=== PATIENT | female | born 1975 | race African-American/Black ===

== ENCOUNTER 2018-08-23 01:19 | Emergency (ER) | payer MEDICAID, OTHER ==
[~2018-08-23] VITALS: Ht 170.2 cm; Wt 81.6 kg
[~2018-08-23 01:19] MED LIST: AMLODIPINE; BENA20TA14; GABA1POW27; HCTZ; NAPROXEN
[2018-08-23] MEDS ORDERED: cloNIDine HCL 0.1 MG TAB PO ONE (01:45)
[2018-08-23 02:03] LABS: Basophils # (auto) 0 uL; Basophils % (auto) 0.2 % (0.0-2.0); Eosinophils # (auto) 0.1 uL; Eosinophils % (auto) 1.3 % (0.0-7.0); Hemoglobin 12.7 g/dL (12.2-16.2); Lymphocytes # (auto) 2.5 uL; Lymphocytes % (auto) 49.2 % (10.0-50.0); Mean Corpuscular Hgb Conc. 33.3 g/dL (32.0-36.0); Mean Corpuscular Volume 95.9 fL (80.0-100.0); Monocytes # (auto) 0.4 uL; Monocytes % (auto) 7.2 % (0.0-12.0); Neutrophils # (auto) 2.1 uL; Neutrophils % (auto) 42.1 % (37.0-80.0); Nucleated Red Blood Cells % 0.1 %; Platelet Count (auto) 242 10^3/uL (140-450); Red Blood Cells 3.96 10^6/uL (4.0-5.20); Red Cell Distribution Width 14.7 % (11.8-14.3); White Blood Cell 5.1 10^3/uL (4.4-10.8)
[2018-08-23 02:21] LABS: Alanine Aminotransferase 30 U/L (13-56); Albumin 3.3 g/dL (3.4-5.0); Anion Gap 9 (5-15); Blood Urea Nitrogen 12 mg/dL (7-18); Calcium 7.8 mg/dL (8.5-10.1); Carbon Dioxide 26 mmol/L (21-32); Chloride 103 mmol/L (98-107); GFR African American 101 mL/min; GFR Non-African American 83 mL/min; Glucose 109 mg/dL (74-106); Potassium 3.6 mmol/L (3.5-5.1); Sodium 138 mmol/L (136-145)
[2018-08-23 02:25] LABS: INR 0.94 (0.9-1.15); Partial Thromboplastin Time 27.5 sec (23.78-33.04); Prothrombin Time 10.1 sec (9.27-12.13)
[2018-08-23 02:27] LABS: Alkaline Phosphatase 51 U/L (45-117); Aspartate Aminotransferase 27 U/L (15-37); Bilirubin, Total 0.5 mg/dL (0.2-1.0); Total Protein 7.7 g/dL (6.4-8.2)
[2018-08-23 03:58] VITALS: BP 144/102
== END 2018-08-23 03:58 | disposition left against medical advice (07) ==
LOC: ER 01:22
DX: R51 Headache (principal); R42 Dizziness and giddiness; Z53.21 Procedure and treatment not carried out due to patient leaving prior to being seen by health care provider
CPT/HCPCS: 36415; 70450; 71046; 80053; 83735; 84484; 85025; 85610; 85730; 93005

== ENCOUNTER 2022-01-17 07:18 | Emergency (ER) | payer OTHER, MEDICAID ==
[~2022-01-17] VITALS: Ht 170.2 cm; Wt 81.6 kg
[~2022-01-17 07:18] MED LIST changes: -GABA1POW27; +GABAPOW36
[2022-01-17] MEDS ORDERED: cloNIDine HCL 0.1 MG TAB ONE (07:34)
[2022-01-17] MEDS ORDERED: cloNIDine HCL 0.1 MG TAB PO ONE (08:15)
[2022-01-17 08:38] LABS: Basophils # (auto) 0 10 ^3/uL (0-0.2); Basophils % (auto) 0.9 % (0.0-2.0); Eosinophils # (auto) 0 10 ^3/uL (0-0.8); Eosinophils % (auto) 0.8 % (0.0-7.0); Hematocrit 38.1 % (36.0-46.0); Hemoglobin 12.4 g/dL (12.2-16.2); Lymphocytes # (auto) 1.7 10 ^3/uL (0.4-5.4); Lymphocytes % (auto) 39.7 % (10.0-50.0); Mean Corpuscular Hemoglobin 30.1 pg (28.0-32.0); Mean Corpuscular Hgb Conc. 32.6 g/dL (32.0-36.0); Mean Corpuscular Volume 92.6 fL (80.0-100.0); Monocytes # (auto) 0.4 10 ^3/uL (0-1.3); Monocytes % (auto) 9.3 % (0.0-12.0); Neutrophils # (auto) 2.1 10 ^3/uL (1.6-8.6); Neutrophils % (auto) 49.3 % (37.0-80.0); Nucleated Red Blood Cells % 0.1 %; Red Blood Cells 4.11 10^6/uL (4.0-5.20); White Blood Cell 4.3 10^3/uL (4.4-10.8)
[2022-01-17 08:56] LABS: Potassium 3.7 mmol/L (3.5-5.1)
[2022-01-17 09:03] LABS: Albumin 3.6 g/dL (3.4-5.0); BUN/Creatinine Ratio 12.9; Calcium 8.6 mg/dL (8.5-10.1); Total Protein 8.2 g/dL (6.4-8.2)
[2022-01-17] MEDS ORDERED: IBU600T PO (10:05)
[2022-01-17 13:20] VITALS: BP 145/98
[2022-01-17 13:21] LABS: Urine Bacteria NONE SEEN /hpf (None Seen); Urine Blood Negative /uL (Negative); Urine Mucus FEW (None Seen); Urine Specific Gravity 1.036 (1.001-1.035); Urine WBC 2 /hpf (0 - 5)
== END 2022-01-17 13:23 | disposition home or self-care (01) ==
LOC: ER 07:18
DX: S43.422A Sprain of left rotator cuff capsule, initial encounter (principal); I16.0 Hypertensive urgency; Z98.51 Tubal ligation status; X58.XXXA Exposure to other specified factors, initial encounter; Y93.89 Activity, other specified; Y92.89 Other specified places as the place of occurrence of the external cause; Y99.8 Other external cause status
CPT/HCPCS: 36415; 70450; 73030; 80053; 81001; 84484; 85025; 93005

== ENCOUNTER 2024-12-13 03:12 | Inpatient (IN) | payer OTHER, MEDICAID ==
[~2024-12-13] VITALS: Ht 170.2 cm; Wt 86.2 kg
[~2024-12-13 03:12] MED LIST changes: +BENA-36; -BENA20TA14; +IBU600T PO
--- NOTE | 2024-12-13 03:54 | ED.PDOC ---
HPI Allergic reaction HPI Comments 49 YEAR OLD FEMALE PRESENTS TO ER WITH COMPLAINTS OF ALLERGIC REACTION X 1 DAY. PATIENT STATES THAT SHE RECENTLY STARTED TAKING LISINOPRIL AND METRONIDAZOLE AND WOKE UP THIS MORNING AT 2 A.M. WITH LOWER LIP SWELLING AND "THROAT TIGHTNESS". STATES HER MOTHER HAD THE SAME REACTION WHEN SHE TOOK LISINOPRIL. PATIENT DENIES ANY PAIN AND PRESENTS TO ER AMBULATORY ON ARRIVAL, ALERT AND ORIENTED X4, SPEAKING IN CLEAR AND COMPLETE SENTENCES, IN NO DISTRESS, WITH VITALS STABLE AND MODERATE ANGIOEDEMA TO LOWER LIP APPRECIATED. DENIES CHEST PAIN, N/V, TONGUE SWELLING, SHORTNESS OF BREATH OR ANY FURTHER SYMPTOMS/COMPLAINTS Chief Complaint: Allergic Reaction Time Seen by MD: 03:27 Primary Care Provider: Dr. Mao Reviewed Notes: Nurses Notes, Medications, Allergies Allergies: Coded Allergies: BOUBACAR Inhibitors (Verified Allergy, Severe, 12/13/24) Metronidazole (Verified Allergy, Severe, 12/13/24) Home Meds Active Scripts Amlodipine Besylate (Amlodipine Besylate) 10 Mg Tab, 10 MG PO DAILY for 20 Days, #20 TAB 1 Refill Prov:RAGHAV STAHL 12/14/24 Discontinued Reported Medications Hydrocodone-Acetaminophen (Hydrocodone Bitartrate/AC 10-325 mg) 1 Tab Tab, 1 TAB PO QIDPRN, TAB 12/13/24 [Naproxen] No Conflict Check 02/26/11 [Hctz] No Conflict Check 02/26/11 Gabapentin (Gabapentin) Pow 02/26/11 [Amlodipine] No Conflict Check 02/26/11 Benazepril Hcl (Benazepril Hcl) 20 Mg Tab 10/13/10 Discontinued Scripts Ibuprofen Micronized (MOTRIN TABLET) 600 Mg Tb, 600 MG PO TID PRN for 5 Days, #15 TAB *Black box warning-NSAIDS can increase risk of [place] & hypertension, GI irritation, ulceration, bleed, perferation. Do not use post cardiac surgery. Use short duration/lowest effective dose. Prov:LUKE LUIS MD 01/17/22 Epinephrine (Epinephrine) 0.3 Mg/0.3 Ml Inj, 0.3 MG IJ ONCE, #1 INJ 0 Refills Prov:TAYLER GAMEZ 12/13/24 Prednisone (Prednisone) 20 Mg Tab, 20 MG PO BID for 5 Days, #10 TAB 0 Refills Prov:TAYLER GAMEZ 12/13/24 Diphenhydramine Hcl (Benadryl Allergy) 25 Mg Cap, 2 CAP PO Q6HPRN, #30 CAP 0 Refills Prov:TAYLER GAMEZ 12/13/24 Information Source: Patient Mode of Arrival: Ambulatory Past Medical History PAST MEDICAL HISTORY: HTN Past Medical History (Other): DIVERTICULITIS Surgical History: BTL RV TECHNICIAN History: No Pertinent RV TECHNICIAN History Family History Family History: No family hx of HTN Social History Smoker: Non-Smoker Alcohol: Occasionally Drugs: Denies Drug Use Lives In: Home Constitutional: denies: chills, diaphoresis, fatigue, fever, malaise, sweats, weakness, others EENTM: reports: others ( STATED IN HPI) Respiratory: denies: cough, hemoptysis, orthopnea, SOB at rest, shortness of breath, SOB with excertion, stridor, wheezing, others Cardiovascular: denies: chest pain, dizzy spells, diaphoresis, Dyspnea on exer tion, edema, irregular heart beat, left arm pain, lightheadedness, palpitations, PND, syncope, others Gastrointestinal: denies: abdomen distended, abdominal pain, blood streaked bowels, constipated, diarrhea, dysphagia, difficulty swallowing, hematemesis, melena, nausea, poor appetite, poor fluid intake, rectal bleeding, rectal pain, vomiting, others Genitourinary: denies: abnormal vagina bleeding, burning, dyspareunia, dysuria, flank pain, frequency, hematuria, incontinence, pain, , vagina discharge, urgency, others Neurological: denies: dizziness, fainting, headache, left sided numbness, left sided weakness, numbness, paresthesia, pre-existing deficit, right sided numbness, right sided weakness, seizure, speech problems, tingling, tremors, weakness, others Musculoskeletal: denies: back pain, gout, joint pain, joint swelling, muscle pain, muscle stiffness, neck pain, others Integumetry: reports: others ( STATED IN HPI) Allergic/Immunocompromised: reports: others ( STATED IN HPI) Hematologic/Lymphatic: denies: anemia, blood clots, easy bleeding, easy bruis ing, swollen glands, others Endocrine: denies: excessive hunger, excessive sweating, excessive thirst, exc essive urination, flushing, intolerance to cold, intolerance to heat, unexplained weight gain, unexplained weight loss, others Psychiatric: denies: anxiety, bipolar disorder, depression, hopeless, panic disorder, schizophrenia, sleepless, suicidal, others Physical Exam General Appearance: No Apparent Distress, Normal HEENT: PERRL/EOMI, Pharynx Normal, TMs Normal, Other (MODERATE ANGIOEDEMA TO LOWER LIP NOTED. REMAINDER MOUTH/THROAT EXAMINATION-UNREMARKABLE) Neck: Full Range of Motion, Non-Tender, Normal Respiratory: Chest Non-Tender, Lungs Clear, No Accessory Muscle Use, No Respiratory Distress, Normal Breath Sounds Cardiovascular: No Murmur, No Gallop, Regular Rate/Rhythm Breast Exam: Deferred Gastrointestinal: NOT DONE Genitalia: Deferred Pelvic: Deferred Rectal: Deferred Extremities: Normal capillary refill, Normal range of motion Neurologic: Alert, rubber chemist II-XII nml as Tested, No Motor Deficits, Normal Affect, Normal Mood, No Sensory Deficits Cerebellar Function: Normal Reflexes: Normal Skin: Dry, Normal Color, Warm Peripheral Pulses: 2+ Radial (R), 2+ Radial (L), 2+ Brachial (R), 2+ Brachial (L) Lymphatic: No Adenopathy Was a procedure done? Was a procedure done?: No Sedation Sedation?: No Differential diagnosis (all) Differential Diagnosis: Anaphylaxis, Contact Dermatitis, Hypotension, Respiratory Failure X-Ray, Labs, Meds, VS Vital Signs Date Time Temp Pulse Resp B/P (MAP) Pulse Ox O2 Delivery O2 Flow Rate FiO2 12/13/24 05:31 109 12/13/24 04:47 154/101 (118) 12/13/24 04:41 82 18 100 Room Air* 0 21 12/13/24 04:41 98.1 73 18 169/68 (101) 100 98.1 12/13/24 03:30 18 100 Room Air* 0 21 12/13/24 03:30 99.1 92 18 128/73 (91) 100 99.1 Lab Test 12/13/24 05:11 Range/Units White Blood Count 10.1 4.4-10.8 10^3/uL Red Blood Count 4.19 4.0-5.20 10^6/uL Hemoglobin 12.6 12.2-16.2 g/dL Hematocrit 37.6 36.0-46.0 % Mean Corpuscular Volume 89.7 80.0-100.0 fL Mean Corpuscular Hemoglobin 30.1 28.0-32.0 pg Mean Corpuscular Hemoglobin Concent 33.6 32.0-36.0 g/dL Red Cell Distribution Width 17.0 H 11.8-14.3 % Platelet Count 287 140-450 10^3/uL Mean Platelet Volume 7.2 6.9-10.8 fL Neutrophils (%) (Auto) 68.6 37.0-80.0 % Lymphocytes (%) (Auto) 22.5 10.0-50.0 % Monocytes (%) (Auto) 8.0 0.0-12.0 % Eosinophils (%) (Auto) 0.3 0.0-7.0 % Basophils (%) (Auto) 0.6 0.0-2.0 % Neutrophils # (Auto) 6.9 1.6-8.6 10 ^3/uL Lymphocytes # (Auto) 2.3 0.4-5.4 10 ^3/uL Monocytes # (Auto) 0.8 0-1.3 10 ^3/uL Eosinophils # (Auto) 0 0-0.8 10 ^3/uL Basophils # (Auto) 0.1 0-0.2 10 ^3/uL Nucleated Red Blood Cells 0.0 % Sodium Level 136 136-145 mmol/L Potassium Level 3.4 L 3.5-5.1 mmol/L Chloride Level 102 98-107 mmol/L Carbon Dioxide Level 24 20-31 mmol/L Anion Gap 10 5-15 Blood Urea Nitrogen 11 9-23 mg/dL Creatinine 0.92 0.550-1.02 mg/dL Glomerular Filtration Rate Calc 76 >90 mL/min BUN/Creatinine Ratio 12.0 10.0-20.0 Serum Glucose 115 H 74-106 mg/dL Hemoglobin A1c 5.8 H <5.7 % A1C Calcium Level 9.4 8.7-10.4 mg/dL Magnesium Level 1.9 1.6-2.6 mg/dL Troponin I High Sensitivity < 3 L </=34 ng/L Triglycerides Level 60 < 150 mg/dL Cholesterol Level 195 < 200 mg/dL LDL Cholesterol 131 H < 100 mg/dL HDL Cholesterol 47 40-59 mg/dL CBC REVIEWED WITHOUT ANY SIGNIFICANT ABNORMALITIES BMP- REVIEWED WITHOUT ANY SIGNIFICANT ABNORMALITIES TROPONIN REVIEWED - NORMAL HEP-LOCK IV ORDERED NS 2 L IV ORDERED SOLU-MEDROL 125 MG IV ORDERED BENADRYL 50 MG IV ORDERED EPINEPHRINE 0.3 MG SUBQ ORDERED EPINEPHRINE 0.3 IM ORDERED EKG ORDERED PATIENT REPORTED IMPROVEMENT IN THROAT TIGHTNESS BUT HAS NO IMPROVEMENT OF ANGIOEDEMA TO LOWER LIP PATIENT RESTING COMFORTABLY AT BEDSIDE, DENIES ANY SHORTNESS OF BREATH/CHEST PAIN/PALPITATIONS AND IN NO DISTRESS PATIENT ADMITTED TO HOSPITALIST FOR ANGIOEDEMA AND NEED FOR FURTHER EVALUATION Time of 1ST Reevaluation: 03:54 Reevaluation 1ST: N/A Time of 2ND Reevaluation: 04:48 Reevaluation 2ND: Unchanged (PATIENT HAS NO IMPROVEMENT OF ANGIOEDEMA OF LOWER LIP. BUT STATES HER THROAT TIGHTNESS HAS FULLY SUBSIDED) Patient Education/Counseling: Diagnosis, Treatment, Prognosis, Need For Follow Up Family Education/Counseling: No Family Present Departure 1 Departure Time of Disposition: 04:50 Impression: Primary Impression: Angioedema Qualified Codes: T78.3XXA - Angioneurotic edema, initial encounter Additional Impression: Allergic reaction Qualified Codes: T78.40XA - Allergy, unspecified, initial encounter Disposition: ADMITTED INPATIENT Condition: Serious e-Prescriptions Amlodipine Besylate (Amlodipine Besylate) 10 Mg Tab 10 MG PO DAILY for 20 Days, #20 TAB 1 Refill Prov: REGINASKYLARCHERYCARLOS RESDICHARITO 12/14/24 Critical Care Note Critical Care Time?: No Stability Stability form required: No Heart Score Heart Score: Heart Score Response (Comments) Value History N/A 0 EKG N/A 0 Age N/A 0 Risk Factors N/A 0 Troponin N/A 0 Total 0 TAYLER GAMEZ Dec 13, 2024 03:54
[2024-12-13] MEDS: diphenhdrAMINE HCL 50 MG/1 ML VL IV ONE (03:58)
[2024-12-13] MEDS: SODIUM CHLORIDE 0.9% 1,000 ML IV ONE ×2 (03:58→05:39)
[2024-12-13] MEDS: methylPREDNISolone SOD SUCC 125 MG/2 ML VL IV ONE (03:58)
[2024-12-13] MEDS ORDERED: PRED20TA2 PO (04:04)
[2024-12-13] MEDS ORDERED: DIPH25CA66 PO (04:04)
[2024-12-13] MEDS ORDERED: EPIN0.3I24 IJ (04:04)
[2024-12-13] MEDS: EPINEPHrine HCL 1 MG/1 ML AMP SC ONE (04:25)
[2024-12-13 04:41] VITALS: PULSE 82; RESP 18; O2SAT 100
[2024-12-13] MEDS: EPINEPHrine HCL 1 MG/1 ML AMP IM ONE (05:08)
[2024-12-13 05:29] LABS: Basophils # (auto) 0.1 10 ^3/uL (0-0.2); Basophils % (auto) 0.6 % (0.0-2.0); Eosinophils # (auto) 0 10 ^3/uL (0-0.8); Eosinophils % (auto) 0.3 % (0.0-7.0); Hematocrit 37.6 % (36.0-46.0); Hemoglobin 12.6 g/dL (12.2-16.2); Lymphocytes # (auto) 2.3 10 ^3/uL (0.4-5.4); Lymphocytes % (auto) 22.5 % (10.0-50.0); Mean Corpuscular Hemoglobin 30.1 pg (28.0-32.0); Mean Corpuscular Hgb Conc. 33.6 g/dL (32.0-36.0); Mean Corpuscular Volume 89.7 fL (80.0-100.0); Monocytes # (auto) 0.8 10 ^3/uL (0-1.3); Neutrophils # (auto) 6.9 10 ^3/uL (1.6-8.6); Neutrophils % (auto) 68.6 % (37.0-80.0); Platelet Count (auto) 287 10^3/uL (140-450); Red Blood Cells 4.19 10^6/uL (4.0-5.20); White Blood Cell 10.1 10^3/uL (4.4-10.8)
[2024-12-13 05:38] LABS: Chloride 102 mmol/L (98-107)
[2024-12-13 05:39] LABS: Anion Gap 10 (5-15); Carbon Dioxide 24 mmol/L (20-31)
[2024-12-13 05:40] LABS: Calcium 9.4 mg/dL (8.7-10.4)
[2024-12-13 05:42] LABS: Potassium 3.4 mmol/L (3.5-5.1); Sodium 136 mmol/L (136-145)
[2024-12-13 05:44] LABS: Blood Urea Nitrogen 11 mg/dL (9-23)
[2024-12-13 05:45] LABS: Glucose 115 mg/dL (74-106)
[2024-12-13] MEDS: SODIUM CHLORIDE 0.9% 1,000 ML IV SCH (05:45)
[2024-12-13] MEDS ORDERED: ACETAMINOPHEN 325 MG TAB PO PRN (05:45)
--- NOTE | 2024-12-13 06:09 | DVHHPRES ---
History of Present Illness Resident Creating Document: BYRON GLASER History of Present Illness This is a 49-year-old female with past medical history of hypertension, dyslipidemia, diverticulitis, chronic back pain, degenerative disk disease, presented to the ED due to allergic reaction. Patient states that she woke up 2:00 a.m. this morning for work and she noticed that her lower lip was heavy and she observed significantly swelling at the mirror. Patient denied swelling in the eyes, other parts of the face, throat tightness, SOB, chest pain or any other additional symptoms. The patient states that the only medications that she is taking at home are lisinopril/hydrochlorothiazide, metronidazole and hydrocodone 10/325. Patient states that has been taking lisinopril for approximately 2-3months and the metronidazole for the past 3 days. The patient reports that she started taking metronidazole because she was diagnosed with diverticulitis three days ago. Patient also reports that her mother similar symptoms when she was taking lisinopril as well. Upon admission, the patient received two shots of intramuscular epinephrine and swelling started to slightly improved. The patient started developing PVCs in a bigeminy pattern that resolves and goes back to bigeminy. EKG showed sinus tachycardia with bigeminy. We will order a CT scan of the abdomen and pelvis without contrast since the patient still having left lower quadrant abdominal tenderness. We will admit the patient for further assessment and management of the angioedema and possible diverticulitis. Past medical history: Primary hypertension, diverticulitis, chronic back pain, dyslipidemia Home medications: Lisinopril/hydrochlorothiazide, metronidazole, hydrocodone 10/325 mg Surgical history: Fallopian tube ligation in 1996 and right foot surgery. Social history: Denies alcohol, drug consumption or smoking. Cardiovascular: HTN, hyperipidemia GI: Diverticulosis Musculoskeletal: Chronic low back pain Past Surgical History: Tubal Ligation Family History: None Smoke: No ALCOHOL: none Drugs: None Lives: with Family Domestic Violence: Neg Review of Systems Constitutional: No: Fever, Chills, Sweats, Weakness, Malaise, Other Eyes: No: Pain, Vision change, Conjunctivae inflammation, Eyelid inflammation, Other, Redness ENT: Mouth swelling; No: Ear pain, Ear discharge, Nose pain, Nose discharge, Nose congestion, Mouth pain, Throat pain, Throat swelling, Other Respiratory: No: Cough, Dry, Shortness of breath, SOB with excertion, Wheezing, Hemoptysis, Pleuritic Pain, Sputum, Wheezing, Other Cardiovascular: No: Chest Pain, Palpitations, Orthopnea, Paroxysmal Noc. Dyspnea, Edema, Lt Headedness, Other Gastrointestinal: Abdominal Pain; No: Nausea, Vomiting, Diarrhea, Constipation, Melena, Hematochezia, Other Genitourinary: No Dysuria, No Frequency, No Incontinence, No Hematuria, No Retention, No Other Musculoskeletal: No: other, neck pain, shoulder pain, arm pain, back pain, hand pain, leg pain, foot pain Skin: No: Rash, Lesions, Jaundice, Bruising, Other Neurological: No: Weakness, Numbness, Incoordination, Change in speech, Confusion, Seizures, Other Allergies: Coded Allergies: BOUBACAR Inhibitors (Verified Allergy, Severe, 12/13/24) Metronidazole (Verified Allergy, Severe, 12/13/24) Medications Current Medications Medications Dose Ordered Sig/Karthikeyan Route Start Time Stop Time Status Last Admin Dose Admin Sodium Chloride 1,000 ml @ 60 mls/hr [id number] IV 12/13/24 05:45 Acetaminophen 650 mg Q6HP PRN PO 12/13/24 05:45 Exam Vital Signs Vital Signs Date Time Temp Pulse Resp B/P (MAP) Pulse Ox O2 Delivery O2 Flow Rate FiO2 12/13/24 05:31 109 12/13/24 04:47 154/101 (118) 12/13/24 04:41 18 100 Room Air* 0 21 12/13/24 04:41 98.1 98.1 General Appearance: Alert, Oriented X3, Cooperative, No acute distress HEENT: Atraumatic, PERRLA, EOMI, Mucous membr. moist/pink, Other (There is significant swelling of the lower lip) Respiratory: Clear to auscultation, Normal air movement Cardiovascular: Regular rate, Normal S1, Normal S2, Other (There is recurrent PVCs forming bigeminy pattern that comes and goes to normal sinus rhythm) Abdominal: Normal bowel sounds, Soft, Other (There is left lower quadrant abdominal tenderness to palpation) Extremities: No clubbing, No cyanosis, No edema, Normal pulses, No tenderness/swelling Skin: No rashes, No breakdown, No significant lesion Neuro: Normal gait, Normal speech, Strength at 5/5 X4 ext, Normal tone, Sensation intact, Cranial nerves 3-12 NL, Reflexes 2+ Psych/Mental Status: Mental status NL, Mood NL Labs/Xrays Labs Test 12/13/24 05:11 Range/Units White Blood Count 10.1 4.4-10.8 10^3/uL Red Blood Count 4.19 4.0-5.20 10^6/uL Hemoglobin 12.6 12.2-16.2 g/dL Hematocrit 37.6 36.0-46.0 % Mean Corpuscular Volume 89.7 80.0-100.0 fL Mean Corpuscular Hemoglobin 30.1 28.0-32.0 pg Mean Corpuscular Hemoglobin Concent 33.6 32.0-36.0 g/dL Red Cell Distribution Width 17.0 H 11.8-14.3 % Platelet Count 287 140-450 10^3/uL Mean Platelet Volume 7.2 6.9-10.8 fL Neutrophils (%) (Auto) 68.6 37.0-80.0 % Lymphocytes (%) (Auto) 22.5 10.0-50.0 % Monocytes (%) (Auto) 8.0 0.0-12.0 % Eosinophils (%) (Auto) 0.3 0.0-7.0 % Basophils (%) (Auto) 0.6 0.0-2.0 % Neutrophils # (Auto) 6.9 1.6-8.6 10 ^3/uL Lymphocytes # (Auto) 2.3 0.4-5.4 10 ^3/uL Monocytes # (Auto) 0.8 0-1.3 10 ^3/uL Eosinophils # (Auto) 0 0-0.8 10 ^3/uL Basophils # (Auto) 0.1 0-0.2 10 ^3/uL Nucleated Red Blood Cells 0.0 % Sodium Level 136 136-145 mmol/L Potassium Level 3.4 L 3.5-5.1 mmol/L Chloride Level 102 98-107 mmol/L Carbon Dioxide Level 24 20-31 mmol/L Anion Gap 10 5-15 Blood Urea Nitrogen 11 9-23 mg/dL Creatinine 0.92 0.550-1.02 mg/dL Glomerular Filtration Rate Calc 76 >90 mL/min BUN/Creatinine Ratio 12.0 10.0-20.0 Serum Glucose 115 H 74-106 mg/dL Calcium Level 9.4 8.7-10.4 mg/dL Assessment/Plan Assessment/Plan Assessment/plan Acute anaphylactic reaction Acute angioedema Acute left lower quadrant abdominal tenderness, R/O acute diverticulitis Hypokalemia Primary hypertension Dyslipidemia Chronic back pain Plan -initial EKG showing sinus tachycardia with recurrent PVCs with bigeminy pattern, comes and goes. -bigeminy started after epinephrine shots, we will continue monitor for resolution -Two intramuscular shots of epinephrine were given in the ED -ordered CT scan of the abdomen without contrast to rule out diverticulitis -discontinue lisinopril and avoid Boubacar inhibitors -start nifedipine 30 mg daily -Potassium replacement -monitor blood pressure closely, if patient persists hypertensive and with bigeminy pattern, consider starting low-dose of carvedilol. -ordered lipid panel, hemoglobin A1c -Clear liquid diet Goals of care discussed with the patient at bedside >35min, FULLCODE Plan discussed with Dr. Vora Plan discussed with: Patient My Orders Orders - BYRON GLASER RESIDENT Procedure Category Date Status Time Admit ADMIT 12/13/24 Transmitted 05:40 Code Status CODE 12/13/24 Transmitted 05:40 Vital Signs KENDALL 12/13/24 In Process 05:40 Review Orders With KENDALL 12/13/24 In Process Adm. 05:40 Encourage Activity As KENDALL 12/13/24 In Process Tolerate 05:40 Regular Diet DIET 12/13/24 Transmitted Breakfast Sodium Chloride 0.9% PHA 12/13/24 In Process 05:45 Acetaminophen Tablet PHA 12/13/24 In Process (Tylenol Tablet) 05:45 Notify Of Changes KENDALL 12/13/24 In Process From Base 05:40 Advance Directive KENDALL 12/13/24 In Process 05:40 Urinalysis LAB 12/13/24 Logged 05:40 Lipid Panel LAB 12/13/24 In Process 05:40 Urine Bacterial ESTEBAN 12/13/24 Logged Culture 05:40 Patient Condition ORDERS 12/13/24 Transmitted 05:40 Allergies KENDALL 12/13/24 In Process 05:40 Drug Screen LAB 12/13/24 Logged 05:40 Hemoglobin A1c LAB 12/13/24 In Process 05:40 Ct Ab Pel Wo Con-No CT 12/13/24 Transmitted Oral Or Iv 05:43 Date of Service: Dec 13, 2024 Billing Provider: EVELIN VORA MD Common Visit Codes: [id number] INP/OBS CARE (HIGH) BYRON GLASER RESIDENT Dec 13, 2024 06:09 EVELIN VORA MD Dec 13, 2024 18:12
--- NOTE | 2024-12-13 06:23 | DVH ---
EXAM: CT Abdomen and Pelvis Without Intravenous Contrast CLINICAL INDICATION: R/O diverticulitis TECHNIQUE: Axial computed tomography images of the abdomen and pelvis without intravenous contrast. This CT exam was performed using one or more of the following dose reduction techniques: automated exposure control, adjustment of the mA and/or kV according to patient size, and/or use of iterative r econstruction technique. CONTRAST: COMPARISON: None FINDINGS: ARTIFACTS: Motion artifact. LUNG BASES: Unremarkable. No mass. No consolidation. ABDOMEN: LIVER: Hepatomegaly with fatty infiltration. GALLBLADDER AND BILE DUCTS: Unremarkable. No calcified stones. No ductal dilation. PANCREAS: Unremarkable. No ductal dilation. SPLEEN: Unremarkable. No splenomegaly. ADRENALS: Unremarkable. No mass. KIDNEYS AND URETERS: Left renal cyst. No obstructing stones. No hydronephrosis. STOMACH AND BOWEL: Fecal retention in the colon consistent with constipation. No obstruction. No evidence of acute diverticulitis. PELVIS: APPENDIX: No findings to suggest acute appendicitis. BLADDER: Unremarkable. No stones. REPRODUCTIVE: Lobulated enlarged uterus with calcification, likely calcified uterine fibroids. ABDOMEN and PELVIS: INTRAPERITONEAL SPACE: Unremarkable. No free air. No significant fluid collection. BONES/JOINTS: No acute fracture. No dislocation. SOFT TISSUES: Unremarkable. VASCULATURE: Unremarkable. No abdominal aortic aneurysm. LYMPH NODES: Unremarkable. No enlarged lymph nodes. OTHER FINDINGS: . . IMPRESSION: 1. No evidence of acute diverticulitis. 2. Lobulated enlarged uterus with calcification, likely calcified uterine fibroids. 3. Hepatomegaly with fatty infiltration. 4. Fecal retention in the colon consistent with constipation.
[2024-12-13] MEDS: POTASSIUM EFFERVESENT TAB 25 MEQ PO ONE (06:56)
[2024-12-13 06:59] LABS: Triglycerides 60 mg/dL (< 150)
[2024-12-13 07:01] LABS: Cholesterol 195 mg/dL (< 200); HDL Cholesterol 47 mg/dL (40-59)
--- NOTE | 2024-12-13 07:10 | ECG ---
[facility] Test Date: 2024-12-13 Test Time: 05:31:25 Pat Name: EDGAR CARO Department: ED Room: [address] [place] [address] Gender: F Vice President Lending: bull : 1975 Requested By: TAYLER GAMEZ Order Number: [id number] Reading MD: Varinder Oropeza Measurements Intervals Waite Rate: 109 P: 65 MD: 174 QRS: -23 QRSD: 96 T: 54 QT: 387 QTc: 522 Interpretive Statements Sinus tachycardia Ventricular bigeminy Prominent P waves, nondiagnostic Borderline left axis deviation Electronically Signed On 12-13-2024 9:35:49 PDT by Varinder Oropeza Please click the below link to view image of tracing.
[2024-12-13 07:21] LABS: Urine Bacteria FEW /hpf (None Seen); Urine Blood Negative /uL (Negative); Urine Clarity Turbid (Clear); Urine Color Colorless (Yellow); Urine Protein, UAD Negative (Negative); Urine Specific Gravity 1.005 (1.001-1.035); Urine Squamous Epithelial Cell MOD /hpf (<5); Urine Urobilinogen Normal (Negative); Urine WBC 2 /HPF (0-5)
[2024-12-13 07:29] LABS: Opiate Scree,Urine Neg (NEGATIVE)
[2024-12-13 07:29] LABS: LDL Cholesterol 131 mg/dL (< 100)
[2024-12-13 07:35] LABS: Amphetamine Screen, Urine Neg (NEGATIVE); Barbiturate Scree,Urine Neg (NEGATIVE); Benzodiazephine Screen, Urine Neg (NEGATIVE); Cannabinoid Screen, Urine Neg (NEGATIVE); Cocaine Screen, Urine Neg (NEGATIVE); Phencyclidine Screen, Urine Neg (NEGATIVE)
[2024-12-13] MEDS: NIFEdipine ER 30 MG TAB PO SCH (08:32)
[2024-12-13 08:40] VITALS: BP 135/92; PULSE 108; RESP 18; TEMP 97.8; O2SAT 99
[2024-12-13] MEDS ORDERED: HYDR-4798 PO (10:23)
[2024-12-13 12:44] VITALS: BP 149/87; PULSE 102; RESP 18; TEMP 97.8; O2SAT 98
[2024-12-13 17:40] VITALS: BP 135/97; PULSE 87; RESP 18; TEMP 98.6; O2SAT 99
--- NOTE | 2024-12-13 19:10 | DVHPNRES ---
Progress Note Date Seen: Dec 13, 2024 Resident Creating Document: RAGHAV STAHL LEFTY Has the PT tested + for MRSA If YES, has PT been informed?: No Medical Necessity Reason Pt with a Central, PICC or Fol: No Subjective Review of Systems Patient seen and examined at bedside. Patient is still complaining of lower limb swelling and heaviness. Patient reports: No new complaints, Feels better Changes from previous H/P or p: Changes Objective vital signs Vital Sign Date Time Temp Pulse Resp B/P (MAP) Pulse Ox O2 Delivery O2 Flow Rate FiO2 12/13/24 17:40 98.6 87 18 135/97 (110) 99 98.6 12/13/24 17:33 Room Air* 0 21 medications Current Medications Medications Dose Ordered Sig/Karthikeyan Route Start Time Stop Time Status Last Admin Dose Admin Sodium Chloride 1,000 ml @ 60 mls/hr [id number] IV 12/13/24 05:45 12/13/24 05:45 60 MLS/HR Acetaminophen 650 mg Q6HP PRN PO 12/13/24 05:45 Nifedipine 30 mg DAILY@0800 PO 12/13/24 08:00 12/13/24 08:32 30 MG Examination General Appearance: Alert, Oriented X3, Cooperative, No acute distress HEENT: Lower lip and trout is swollen Respiratory: Clear to auscultation, Normal air movement Cardiovascular: Regular rate, Normal S1, Normal S2, No murmurs, no chest wall tenderness Abdominal: Normal bowel sounds, Soft, No tenderness, No hepatospenomegaly, No masses Extremities: No clubbing, No cyanosis, No edema, Normal pulses, No tenderness/swelling Skin: No rashes, No breakdown, No significant lesion Neuro: Normal gait, Normal speech, Strength at 5/5 X4 ext, Normal tone, Sensation intact, Cranial nerves 3-12 NL, Reflexes 2+ Psych/Mental Status: Mental status NL, Mood NL laboratory and microbiology Laboratory Tests 12/13/24 05:11 Test 12/13/24 05:11 Range/Units Serum Glucose 115 H 74-106 mg/dL Labs and/or images reviewed: Labs reviewed by me, Image(s) reviewed by me Problem List/Assessment/Plan Problem List/Assessment/Plan Angioedema, likely due to lisinopril ? Acute anaphylactic reaction History of diverticulitis Hypokalemia Primary hypertension Dyslipidemia Chronic back pain Plan/recommendation The patient was given 2 shots of a.m. epinephrine and Solu-Medrol Stopped lisinopril Consulted patient not to take BOUBACAR inhibitor and in the future Nifedipine We will keep the patient for airway monitoring for 24 more hours IV fluid DIET: Cardiac diet DVT PROPHYLAXIS: Lovenox CODE STATUS: Goal of care discussed for more than 18 minutes, full code DISPOSITION: Med/surge Patient's status and plan discussed with the patient. Case discussed with Dr. Mccarty. Plan discussed with: Patient, Other (RN) Date of Service: Dec 13, 2024 Billing Provider: THEA MCCARTY MD Common Visit Codes: [id number] INP/OBS CARE(HIGH) RAGHAV STAHL RESDICHARITO Dec 13, 2024 19:10 THEA MCCARTY MD Dec 14, 2024 20:09
[2024-12-13 20:00] VITALS: PULSE 77
[2024-12-13 21:00] VITALS: BP 143/89; PULSE 78; RESP 18; TEMP 97.4; O2SAT 99
[2024-12-14 01:19] VITALS: BP 133/84; PULSE 66; RESP 18; TEMP 97; O2SAT 100
[2024-12-14 05:00] VITALS: BP 142/90; PULSE 71; RESP 18; TEMP 97.1; O2SAT 99
[2024-12-14 06:22] LABS: Basophils # (auto) 0 10 ^3/uL (0-0.2); Basophils % (auto) 0.1 % (0.0-2.0); Eosinophils # (auto) 0 10 ^3/uL (0-0.8); Eosinophils % (auto) 0.2 % (0.0-7.0); Hematocrit 35.1 % (36.0-46.0); Hemoglobin 11.8 g/dL (12.2-16.2); Lymphocytes # (auto) 2.2 10 ^3/uL (0.4-5.4); Lymphocytes % (auto) 20.5 % (10.0-50.0); Mean Corpuscular Hemoglobin 29.9 pg (28.0-32.0); Mean Corpuscular Hgb Conc. 33.7 g/dL (32.0-36.0); Mean Corpuscular Volume 88.8 fL (80.0-100.0); Monocytes # (auto) 0.5 10 ^3/uL (0-1.3); Monocytes % (auto) 4.3 % (0.0-12.0); Neutrophils # (auto) 8.2 10 ^3/uL (1.6-8.6); Neutrophils % (auto) 74.9 % (37.0-80.0); Nucleated Red Blood Cells % 0.1 %; Platelet Count (auto) 299 10^3/uL (140-450); Red Blood Cells 3.96 10^6/uL (4.0-5.20); Red Cell Distribution Width 16.5 % (11.8-14.3); White Blood Cell 10.9 10^3/uL (4.4-10.8)
[2024-12-14 06:46] LABS: Albumin 3.9 g/dL (3.2-4.8); Anion Gap 9 (5-15); BUN/Creatinine Ratio 12.9 (10.0-20.0); Blood Urea Nitrogen 11 mg/dL (9-23); Calcium 9.2 mg/dL (8.7-10.4); Carbon Dioxide 26 mmol/L (20-31); Chloride 104 mmol/L (98-107); Potassium 4.2 mmol/L (3.5-5.1); Sodium 139 mmol/L (136-145); Total Protein 7.6 g/dL (5.7-8.2)
[2024-12-14 06:47] LABS: Bilirubin, Total 0.7 mg/dL (0.2-1.0)
[2024-12-14 06:49] LABS: Alanine Aminotransferase < 9 U/L (7-40); Alkaline Phosphatase 44 U/L (46-116); Aspartate Aminotransferase 13 U/L (13-40); Glucose 121 mg/dL (74-106)
[2024-12-14 08:00] VITALS: PULSE 70
[2024-12-14 09:28] VITALS: BP 142/97; PULSE 86; RESP 18; TEMP 97.8; O2SAT 98
[2024-12-14] MEDS ORDERED: AMLO1TAB23 PO (09:39)
--- NOTE | 2024-12-14 15:19 | DVHDSRES ---
Discharge Summary Date of Admission Resident Creating Document: RAGHAV STAHL RESDIENT Dec 13, 2024 at 05:40 Date of Discharge: Dec 14, 2024 Admitting Diagnosis Angioedema Labs/Diagnostic Data: Laboratory Results Test 12/14/24 04:57 12/13/24 06:50 12/13/24 05:11 White Blood Count 10.9 10^3/uL (4.4-10.8) Red Blood Count 3.96 10^6/uL (4.0-5.20) Hemoglobin 11.8 g/dL (12.2-16.2) Hematocrit 35.1 % (36.0-46.0) Mean Corpuscular Volume 88.8 fL (80.0-100.0) Mean Corpuscular Hemoglobin 29.9 pg (28.0-32.0) Mean Corpuscular Hemoglobin Concent 33.7 g/dL (32.0-36.0) Red Cell Distribution Width 16.5 % (11.8-14.3) Platelet Count 299 10^3/uL (140-450) Mean Platelet Volume 7.6 fL (6.9-10.8) Neutrophils (%) (Auto) 74.9 % (37.0-80.0) Lymphocytes (%) (Auto) 20.5 % (10.0-50.0) Monocytes (%) (Auto) 4.3 % (0.0-12.0) Eosinophils (%) (Auto) 0.2 % (0.0-7.0) Basophils (%) (Auto) 0.1 % (0.0-2.0) Neutrophils # (Auto) 8.2 10 ^3/uL (1.6-8.6) Lymphocytes # (Auto) 2.2 10 ^3/uL (0.4-5.4) Monocytes # (Auto) 0.5 10 ^3/uL (0-1.3) Eosinophils # (Auto) 0 10 ^3/uL (0-0.8) Basophils # (Auto) 0 10 ^3/uL (0-0.2) Nucleated Red Blood Cells 0.1 % Sodium Level 139 mmol/L (136-145) Potassium Level 4.2 mmol/L (3.5-5.1) Chloride Level 104 mmol/L (98-107) Carbon Dioxide Level 26 mmol/L (20-31) Anion Gap 9 (5-15) Blood Urea Nitrogen 11 mg/dL (9-23) Creatinine 0.85 mg/dL (0.550-1.02) Glomerular Filtration Rate Calc 84 mL/min (>90) BUN/Creatinine Ratio 12.9 (10.0-20.0) Serum Glucose 121 mg/dL (74-106) Calcium Level 9.2 mg/dL (8.7-10.4) Total Bilirubin 0.7 mg/dL (0.2-1.0) Aspartate Amino Transferase (AST) 13 U/L (13-40) Alanine Aminotransferase (ALT) < 9 U/L (7-40) Alkaline Phosphatase 44 U/L (46-116) Total Protein 7.6 g/dL (5.7-8.2) Albumin 3.9 g/dL (3.2-4.8) Urine Color Colorless (Yellow) Urine Clarity Turbid (Clear) Urine pH 6.0 (5.0-9.0) Urine Specific [place] 1.005 (1.001-1.035) Urine Protein Negative (Negative) Urine Ketones Trace (Negative) Urine Blood Negative /uL (Negative) Urine Nitrite Negative (Negative) Urine Bilirubin Negative (Negative) Urine Urobilinogen Normal mg/dL (Negative) Urine Leukocyte Esterase Negative /uL (Negative) Urine RBC 2 /hpf (0 - 4) Urine Microscopic WBC 2 /HPF (0-5) Urine Squamous Epithelial Cells Mod /hpf (<5) Urine Bacteria Few /hpf (None Seen) Urine Glucose Normal mg/dL (Normal) Urine Opiates Screen Neg (NEGATIVE) Urine Fentanyl Screen Neg (NEGATIVE) Urine Barbiturates Screen Neg (NEGATIVE) Urine Phencyclidine Screen Neg (NEGATIVE) Urine Amphetamines Screen Neg (NEGATIVE) Urine Benzodiazepines Screen Neg (NEGATIVE) Urine Cocaine Screen Neg (NEGATIVE) Urine Cannabinoids Screen Neg (NEGATIVE) Hemoglobin A1c 5.8 % A1C (<5.7) Magnesium Level 1.9 mg/dL (1.6-2.6) Troponin I High Sensitivity < 3 ng/L (</=34) Triglycerides Level 60 mg/dL (< 150) Cholesterol Level 195 mg/dL (< 200) LDL Cholesterol 131 mg/dL (< 100) HDL Cholesterol 47 mg/dL (40-59) Other Laboratory Tests 12/14/24 04:57 Brief Hx & Hospital Course: This is a 49-year-old female with past medical history of hypertension, dyslipidemia, diverticulitis, chronic back pain, degenerative disk disease, presented to the ED due to allergic reaction. Patient states that she woke up 2:00 a.m. this morning for work and she noticed that her lower lip was heavy and she observed significantly swelling at the mirror. Patient denied swelling in the eyes, other parts of the face, throat tightness, SOB, chest pain or any other additional symptoms. The patient states that the only medications that she is taking at home are lisinopril/hydrochlorothiazide, metronidazole and hydrocodone 10/325. Patient states that has been taking lisinopril for approximately 2-3months and the metronidazole for the past 3 days. The patient reports that she started taking metronidazole because she was diagnosed with diverticulitis three days ago. Patient also reports that her mother similar symptoms when she was taking lisinopril as well. Upon admission, the patient received two shots of intramuscular epinephrine and swelling started to slightly improved. The patient started developing PVCs in a bigeminy pattern that resolves and goes back to bigeminy. EKG showed sinus tachycardia with bigeminy. We will order a CT scan of the abdomen and pelvis without contrast since the patient still having left lower quadrant abdominal tenderness. We will admit the patient for further assessment and management of the angioedema and possible diverticulitis. Hospital course: Upon admission the patient had lip swelling, and in respiratory distress. The patient was given 2 shots of injection epinephrine, injection Solu-Medrol and IV fluid. Lisinopril was discontinued, and the patient was given nifedipine. For abdominal pain, abdominopelvic CT scan was performed, showed no significant intra-abdominal abnormalities. Patient airway observed for 48 hours and did not develop any other episodes of respiratory distress. On 12/14/2024, the patient was feeling better since admission. Discharge plan discussed with the patient the patient discharged home. Discharge plan: Follow up with the PCP within 1 week of discharge. Amlodipine 10 mg daily Discontinue lisinopril Patient was consulted to not take BOUBACAR inhibitor (including lisinopril, ramipril, benazepril, and captopril) in the future. Condition at Discharge: Good Final Diagnosis/Problems List Angioedema secondary to lisinopril ?Acute anaphylactic reaction History of diverticulitis Hypokalemia Primary hypertension Dyslipidemia Chronic back pain Discharge Disposition: Home Discharge Instruct/Medications Diet: Regular, Cardiac 2g Na,low cholest Activity: No Restrictions, As Tolerated Follow Up/Referral: Follow up with the PCP within 1 week of the discharge Medications: Amlodopine 10mg daily Discontinue lisinopril Discharge Statement: "Patient was advised to return to the ER or call 911 if any headaches, dizziness, shortness of breath, chest pain, abdominal pain, bleeding, fevers, or worsening of medical condition. Patient was counseled about treatment plan, medications, possible side effects, patientverbalized understanding. All questions were answered to the best of my ability. This discharge took greater then 30 minutes in planning, reviewing documentation, counseling the patient, and discussing with other team members." ASSESSMENT ASSESSMENT Assessment Angioedema secondary to lisinopril Date of Service: Dec 13, 2024 Billing Provider: THEA MCCARTY MD Common Visit Codes: 45732-UAD/OBS DISCH DAY >30min RAGHAV STAHL RESDIENT Dec 14, 2024 15:19 THEA MCCARTY MD Dec 14, 2024 20:13
== END 2024-12-14 10:18 | disposition home or self-care (01) | DRG 916 ==
LOC: ER 03:12 → OVERFLOW 05:40 → TELE-WESTW 17:35
PROVIDERS: ADMIT Student in an Organized Health Care Education/Training Program; ATTEND Internal Medicine
DX: T78.3XXA Angioneurotic edema, initial encounter (principal); T78.2XXA Anaphylactic shock, unspecified, initial encounter; E87.6 Hypokalemia; I10 Essential (primary) hypertension; E78.5 Hyperlipidemia, unspecified; Y83.8 Other surgical procedures as the cause of abnormal reaction of the patient, or of later complication, without mention of misadventure at the time of the procedure; T46.4X5A Adverse effect of angiotensin-converting-enzyme inhibitors, initial encounter; G89.29 Other chronic pain; M54.9 Dorsalgia, unspecified; Z88.8 Allergy status to other drugs, medicaments and biological substances; Z79.899 Other long term (current) drug therapy; Z79.1 Long term (current) use of non-steroidal anti-inflammatories (NSAID); Y92.89 Other specified places as the place of occurrence of the external cause
CPT/HCPCS: 36415; 74176; 80048; 80053; 80061; 80307; 81001; 83036; 83735; 84484; 85025; 87086; 93005; 96361; 96374; 96375; G0378; J0171

== ENCOUNTER 2024-12-28 09:24 | Inpatient (IN) | payer OTHER, MEDICAID ==
[~2024-12-28] VITALS: Ht 170.2 cm; Wt 88.5 kg
[~2024-12-28 09:24] MED LIST changes: +AMLO1TAB23 PO; -AMLODIPINE; -BENA-36; -GABAPOW36; -HCTZ; -IBU600T PO; -NAPROXEN
--- NOTE | 2024-12-28 09:56 | ED.PDOC ---
HPI Comments This is a 49 year old female LEA presenting to the ED with chief complaint of dizziness. Patient reports that while at work this morning, she started to experience dizziness and was found to be hypertensive at 181/112. Patient relays that she had taken half a tab of Hydralazine prior to EMS arrival and EMS notes they provided 324mg of ASA on route. Patient denies any chest pain, SOB, N/V, numbness, weakness, or tingling. Chief Complaint: High Blood Pressure Time Seen by MD: 09:54 Primary Care Provider: rudi Reviewed Notes: Nurses Notes, Pigskin Trimmer Notes, Medications, Allergies Allergies: Coded Allergies: BOUBACAR Inhibitors (Verified Allergy, Severe, 12/13/24) Metronidazole (Verified Allergy, Severe, 12/13/24) Home Meds Active Scripts Amlodipine Besylate (Amlodipine Besylate) 10 Mg Tab, 10 MG PO DAILY for 20 Days, #20 TAB 1 Refill Prov:RAGHAV STAHL RESDICHARITO 12/14/24 Information Source: Patient, Emergency Med Personnel Mode of Arrival: EMS Severity: Moderate Timing: Hours Duration: Since onset Prehospital treatment: None Cardiac Risk Factors: HTN PE Risk Factors: None History of: Aspirin Past Medical History PAST MEDICAL HISTORY: HTN Surgical History: 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 History Family History Family History: No family hx of HTN Social History Smoker: Non-Smoker Alcohol: Occasionally Drugs: Denies Drug Use Lives In: Home Constitutional: denies: chills, diaphoresis, fatigue, fever, malaise, sweats, weakness, others EENTM: denies: blurred vision, double vision, ear bleeding, ear discharge, ear drainage, ear pain, ear ringing, eye pain, eye redness, hearing loss, mouth pain, mouth swelling, nasal discharge, nose bleeding, nose congestion, nose pain, photophobia, tearing, throat pain, throat swelling, voice changes, others Respiratory: denies: cough, hemoptysis, orthopnea, SOB at rest, shortness of breath, SOB with excertion, stridor, wheezing, others Cardiovascular: reports: lightheadedness; denies: chest pain, dizzy spells, diaphoresis, Dyspnea on exertion, edema, irregular heart beat, left arm pain, palpitations, PND, syncope, others Gastrointestinal: denies: abdomen distended, abdominal pain, blood streaked bowels, constipated, diarrhea, dysphagia, difficulty swallowing, hematemesis, melena, nausea, poor appetite, poor fluid intake, rectal bleeding, rectal pain, vomiting, others Genitourinary: denies: abnormal vagina bleeding, burning, dyspareunia, dysuria, flank pain, frequency, hematuria, incontinence, pain, , vagina discharge, urgency, others Neurological: denies: dizziness, fainting, headache, left sided numbness, left sided weakness, numbness, paresthesia, pre-existing deficit, right sided numbness, right sided weakness, seizure, speech problems, tingling, tremors, weakness, others Musculoskeletal: denies: back pain, gout, joint pain, joint swelling, muscle pain, muscle stiffness, neck pain, others Integumetry: denies: bruises, change in color, change in hair/nails, dryness, laceration, lesions, lumps, rash, wounds, others Allergic/Immunocompromised: denies: Difficulty Healing, Frequent Infections, Hives, Itching, others Hematologic/Lymphatic: denies: anemia, blood clots, easy bleeding, easy bruising, swollen glands, others Endocrine: denies: excessive hunger, excessive sweating, excessive thirst, excessive urination, flushing, intolerance to cold, intolerance to heat, unexplained weight gain, unexplained weight loss, others Psychiatric: denies: anxiety, bipolar disorder, depression, hopeless, panic disorder, schizophrenia, sleepless, suicidal, others All Other Systems: Reviewed and Negative Physical Exam General Appearance: No Apparent Distress, Normal HEENT: Normal ENT Inspection, Pharynx Normal, TMs Normal Neck: Full Range of Motion, Non-Tender, Normal, Normal Inspection Respiratory: Chest Non-Tender, Lungs Clear, No Accessory Muscle Use, No Respiratory Distress, Normal Breath Sounds Cardiovascular: No Edema, No JVD, No Murmur, No Gallop, Normal Peripheral Pulses, Regular Rate/Rhythm Breast Exam: Deferred Gastrointestinal: No Organomegaly, Non Tender, No Pulsatile Mass, Normal Bowel Sounds, Soft Genitalia: Deferred Pelvic: Deferred Rectal: Deferred Extremities: No calf tenderness, Normal capillary refill, Normal inspection, Normal range of motion, Non-tender, No pedal edema Musculoskeletal : Apperance: Normal Neurologic: Alert, call center team leader II-XII nml as Tested, No Motor Deficits, Normal Affect, Normal Mood, No Sensory Deficits Cerebellar Function: Normal Reflexes: Normal Skin: Dry, Normal Color, Warm Lymphatic: No Adenopathy Was a procedure done? Was a procedure done?: No CP Differential Dx Differential Diagnosis: MAT, VT, PAC's Differential Diagnosis: HTN Essential, HTN Accelerated Differential Diagnosis: Gastritis, Myocardial Infarction, Pericarditis X-Ray, Labs, Meds, VS Vital Signs Date Time Temp Pulse Resp B/P (MAP) Pulse Ox O2 Delivery O2 Flow Rate FiO2 12/28/24 12:38 82 12/28/24 12:09 197/110 12/28/24 11:43 98.9 90 16 197/125 (149) 99 98.9 12/28/24 10:26 90 17 100 Room Air 12/28/24 10:26 97.7 90 16 152/93 (112) 100 97.7 12/28/24 10:25 79 12/28/24 09:41 98.7 82 18 175/112 (133) 100 98.7 12/28/24 09:28 81 Lab Test 12/28/24 11:51 12/28/24 10:03 Range/Units Troponin I High Sensitivity 3 L < 3 L </=34 ng/L White Blood Count 4.6 4.4-10.8 10^3/uL Red Blood Count 4.11 4.0-5.20 10^6/uL Hemoglobin 12.3 12.2-16.2 g/dL Hematocrit 36.6 36.0-46.0 % Mean Corpuscular Volume 89.0 80.0-100.0 fL Mean Corpuscular Hemoglobin 29.9 28.0-32.0 pg Mean Corpuscular Hemoglobin Concent 33.6 32.0-36.0 g/dL Red Cell Distribution Width 15.9 H 11.8-14.3 % Platelet Count 363 140-450 10^3/uL Mean Platelet Volume 7.0 6.9-10.8 fL Neutrophils (%) (Auto) 46.7 37.0-80.0 % Lymphocytes (%) (Auto) 42.1 10.0-50.0 % Monocytes (%) (Auto) 8.8 0.0-12.0 % Eosinophils (%) (Auto) 1.4 0.0-7.0 % Basophils (%) (Auto) 1.0 0.0-2.0 % Neutrophils # (Auto) 2.1 1.6-8.6 10 ^3/uL Lymphocytes # (Auto) 1.9 0.4-5.4 10 ^3/uL Monocytes # (Auto) 0.4 0-1.3 10 ^3/uL Eosinophils # (Auto) 0.1 0-0.8 10 ^3/uL Basophils # (Auto) 0 0-0.2 10 ^3/uL Nucleated Red Blood Cells 0.2 % Sodium Level 139 136-145 mmol/L Potassium Level 4.0 3.5-5.1 mmol/L Chloride Level 103 98-107 mmol/L Carbon Dioxide Level 28 20-31 mmol/L Anion Gap 8 5-15 Blood Urea Nitrogen 9 9-23 mg/dL Creatinine 0.92 0.550-1.02 mg/dL Glomerular Filtration Rate Calc 76 >90 mL/min BUN/Creatinine Ratio 9.8 L 10.0-20.0 Serum Glucose 95 74-106 mg/dL Calcium Level 9.8 8.7-10.4 mg/dL Current Medications Medications (Trade) Dose Ordered Sig/Karthikeyan Route Start Time Stop Time Status Last Admin Sodium Chloride 1,000 ml @ 1,000 mls/hr Q1H ONCE IV 12/28/24 09:45 12/28/24 10:44 DC 12/28/24 10:11 Hydralazine HCl (Apresoline Injection) 10 mg ONCE ONCE IV 12/28/24 11:15 12/28/24 11:20 DC 12/28/24 12:09 Chest XR: FINDINGS: Lines and tubes: None Cardiomediastinal silhouette: normal Pulmonary vasculature: normal Lung expansion: normal Lung airspace: normal Lung interstitium: normal Pleura: normal Pneumothorax: no Bones: Unremarkable Other: no IMPRESSION: No acute intrathoracic abnormality. Head: FINDINGS: The ventricles and subarachnoid spaces are normal in size and configuration. There is no midline shift or mass effect. The cabral white matter interfaces are maintained. The basal cisterns are patent. There is no evidence of acute intracranial hemorrhage or extra-axial fluid collection. The mastoid air cells and visualized paranasal sinuses are well-aerated. IMPRESSION: No acute intracranial abnormality. Images Reviewed?: Images reviewed and evaluated by me Time of 1ST Reevaluation: 10:54 Reevaluation 1ST: Unchanged Patient Education/Counseling: Diagnosis, Treatment Family Education/Counseling: No Family Present Additional Information Previous visits reviewed: 12/13/24 for angioedema The following tests were ordered, and results were reviewed by me: CBC, BMP, Troponin, EKG, Chest XR, CT Head, UA Additional Information was gathered from interviewing the following independent historians: EMS I reviewed and agreed with the following test results read by other providers: None I discussed treatment and results with medical personnel and: patient Comprehensive systems review obtained and negative except for what is stated in the HPI. SEPSIS Sepsis Screen Date sepsis recognized/suspect: Dec 28, 2024 Time Sepsis recognized/suspect: 929 Recent Procedure: No On Antibiotic Therapy: No Respiratory Rate >20: No Heart Rate >90: No Temp<36 C (96.8 F) or >38.3 C: No SBP <90 or MAP <65 mmHG: No New Acute Mental Status Change: No Is the patient on CPAP, BIPAP,: No Physician Orders Urinalysis (12/28/24 09:39) Chest Portable (12/28/24 09:39) Head Without Contrast (12/28/24 09:39) Electrocardigram (12/28/24 09:39) Troponin-I Hs (12/28/24 12:39) Electrocardigram (12/28/24 10:39) Electrocardigram (12/28/24 12:39) Vital Signs Date Time Temp Pulse Resp B/P (MAP) Pulse Ox O2 Delivery O2 Flow Rate FiO2 12/28/24 12:38 82 12/28/24 12:09 197/110 12/28/24 11:43 98.9 90 16 197/125 (149) 99 98.9 12/28/24 10:26 90 17 100 Room Air 12/28/24 10:26 97.7 90 16 152/93 (112) 100 97.7 12/28/24 10:25 79 12/28/24 09:41 98.7 82 18 175/112 (133) 100 98.7 12/28/24 09:28 81 Laboratory Tests Test 12/28/24 10:03 White Blood Count 4.6 10^3/uL (4.4-10.8) Medications Medications Dose Ordered Sig/Karthikeyan Route Start Time Stop Time Status Last Admin Dose Admin Hydralazine HCl 10 mg ONCE ONCE IV 12/28/24 11:15 12/28/24 11:20 DC 12/28/24 12:09 Sodium Chloride 1,000 ml @ 1,000 mls/hr Q1H ONCE IV 12/28/24 09:45 12/28/24 10:44 DC 12/28/24 10:11 Departure 1 Departure Time of Disposition: 13:13 (Patient presented with hypertension and symptoms concerning for hypertensive emergency. Patient is receiving iv blood pressure medications requiring intensive monitoring. Data: 1. I ordered and reviewed the result of at least 3 labs including a CBC, BMP, and Urinalysis. 2. I in dependently interpreted the following tests: CT Brain: Which appears benign. EKG which is Normal Sinus RhythmRisk:This patient has a high risk of morbidity due to further diagnostic testing or treatment and may suffer from an acute cardiac disorder. Workup reveals hypertensive emergency and patient should be admitted for further workup. and possible expert consultation. ) Impression: Primary Impression: Hypertensive emergency Additional Impressions: Near syncope Generalized weakness Disposition: 09 ADMITTED INPATIENT Admit to: Med Surg Condition: Guarded Critical Care Note Critical Care Time?: Yes Critical care comment: Hypertensive emergency Authorized and Performed by: Cindy Arteaga MD Total critical care time: Approximately 47 minutes Due to a high probability of clinically significant, life threatening deterioration, the patient required my highest level of preparedness to intervene emergently and I personally spent this critical care time directly and personally managing the patient. This critical care time included obtaining a history; examining the patient; pulse oximetry; ordering and review of studies; arranging urgent treatment with development of a management plan; evaluation of patient's response to treatment; frequent reassessment; and, discussions with other providers. This critical care time was performed to assess and manage the high probability of imminent, life-threatening deterioration that could result in multi-organ failure. It was exclusive of separately billable procedures and treating other patients and teaching time. Please see my other sections and the rest of the note for further information on patient assessment and treatment. Stability Stability form required: No Heart Score Heart Score: Heart Score Response (Comments) Value History Moderate Suspicious 1 EKG Normal 0 Age 45-64 1 Risk Factors 1 or 2 risk factors 1 Troponin 1-2 x's Normal limit 1 Total 4 I personally scribed for CINDY ARTEAGA MD ([email or web address]) on 12/28/24 at 09:56. Electronically submitted by Lucas Senior ([email or web address]). I personally scribed for CINDY ARTEAGA MD ([email or web address]) on 12/28/24 at 10:49. Electronically submitted by Lucas Senior ([email or web address]). CINDY ARTEAGA MD Dec 28, 2024 09:56
--- NOTE | 2024-12-28 10:05 | DVH ---
XY CHEST PORTABLE, HISTORY: dizziness COMPARISON: None None TECHNICAL DATA: 1 view of the chest was obtained. FINDINGS: Lines and tubes: None Cardiomediastinal silhouette: normal Pulmonary vasculature: normal Lung expansion: normal Lung airspace: normal Lung interstitium: normal Pleura: normal Pneumothorax: no Bones: Unremarkable Other: no IMPRESSION: No acute intrathoracic abnormality.
[2024-12-28] MEDS: SODIUM CHLORIDE 0.9% 1,000 ML IV ONE (10:11)
--- NOTE | 2024-12-28 10:18 | DVH ---
CLINICAL HISTORY: dizziness TECHNIQUE: Helical imaging carried out from skull base to vertex without intravenous contrast. This e xam was performed according to our departmental dose optimization program. Up-to-date CT equipment an d radiation dose reduction techniques are utilized as appropriate. CTDIVol: 53.99 mGy DLP: 863.9 mGy-cm WID: COMPARISON: HEAD WITHOUT CONTRAST on DOS: 01/17/22 FINDINGS: The ventricles and subarachnoid spaces are normal in size and configuration. There is no midline jaki ft or mass effect. The cabral white matter interfaces are maintained. The basal cisterns are patent. Th ere is no evidence of acute intracranial hemorrhage or extra-axial fluid collection. The mastoid air cells and visualized paranasal sinuses are well-aerated. IMPRESSION: No acute intracranial abnormality.
[2024-12-28 10:20] LABS: Basophils # (auto) 0 10 ^3/uL (0-0.2); Eosinophils # (auto) 0.1 10 ^3/uL (0-0.8); Eosinophils % (auto) 1.4 % (0.0-7.0); Hematocrit 36.6 % (36.0-46.0); Hemoglobin 12.3 g/dL (12.2-16.2); Lymphocytes # (auto) 1.9 10 ^3/uL (0.4-5.4); Lymphocytes % (auto) 42.1 % (10.0-50.0); Mean Corpuscular Hemoglobin 29.9 pg (28.0-32.0); Mean Corpuscular Hgb Conc. 33.6 g/dL (32.0-36.0); Monocytes # (auto) 0.4 10 ^3/uL (0-1.3); Monocytes % (auto) 8.8 % (0.0-12.0); Neutrophils # (auto) 2.1 10 ^3/uL (1.6-8.6); Neutrophils % (auto) 46.7 % (37.0-80.0); Nucleated Red Blood Cells % 0.2 %; Platelet Count (auto) 363 10^3/uL (140-450); Red Blood Cells 4.11 10^6/uL (4.0-5.20); Red Cell Distribution Width 15.9 % (11.8-14.3); White Blood Cell 4.6 10^3/uL (4.4-10.8)
[2024-12-28 10:22] LABS: Chloride 103 mmol/L (98-107); Sodium 139 mmol/L (136-145)
[2024-12-28 10:23] LABS: Anion Gap 8 (5-15); Carbon Dioxide 28 mmol/L (20-31)
[2024-12-28 10:24] LABS: Calcium 9.8 mg/dL (8.7-10.4)
[2024-12-28 10:28] LABS: BUN/Creatinine Ratio 9.8 (10.0-20.0); Blood Urea Nitrogen 9 mg/dL (9-23); Glucose 95 mg/dL (74-106)
[2024-12-28] MEDS: hydrALAZINE HCL 20 MG/ML VL IV ONE ×2 (12:09→13:57)
--- NOTE | 2024-12-28 14:25 | ECG ---
[facility] Test Date: 2024-12-28 Test Time: 14:24:27 Pat Name: EDGAR CARO Department: ED Room: [address] [place] [address] Gender: F Public Works Supervisor: madhuri : 1975 Requested By: CINDY CERVANTES Order Number: [id number] Reading MD: Varinder Oropeza Measurements Intervals [place] Rate: 114 P: 63 NE: 179 QRS: -21 QRSD: 86 T: 71 QT: 337 QTc: 465 Interpretive Statements Sinus tachycardia LAE, consider biatrial enlargement Borderline left axis deviation Probable anteroseptal infarct, old Electronically Signed On 12-28-2024 21:20:12 PDT by Varinder Oropeza Please click the below link to view image of tracing.
[2024-12-28] MEDS: METOPROLOL TARTRATE 1MG/1ML-5ML VIAL IV ONE (15:00)
[2024-12-28] MEDS ORDERED: HYDR50TA47 PO (15:12)
[2024-12-28] MEDS ORDERED: NITROGLYCERIN 0.4 MG SL TAB SL PRN (15:15)
[2024-12-28] MEDS ORDERED: ONDANSETRON HCL 4 MG/2 ML VIAL IV PRN (15:15)
[2024-12-28] MEDS ORDERED: HYDROcodone-ACET 5/325MG TAB PO PRN (15:15)
[2024-12-28] MEDS ORDERED: ACETAMINOPHEN 325 MG TAB PO PRN (15:15)
[2024-12-28] MEDS ORDERED: MORPHINE SULFATE INJ 2 MG/ml SYRG IV PRN ×2 (15:15)
--- NOTE | 2024-12-28 15:28 | DVHHP2 ---
History of Present Illness Reason for Visit: High blood pressure with dizziness History of Present Illness Nils Allison a is a 49-year-old female with past medical history of hypertension, hyperlipidemia, chronic back pain, degenerative disc disease, tubal ligation, ectopic , and right big toe surgery who presents to the ED with dizziness and high blood pressure. 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 She stated that she ate the chicken too fast. Patient states that she came to the ER and once her blood pressure was checked it was high. Patient states that she lives at home with her . She denies chest pain, shortness of breath, fever, chills, weakness, lightheadedness, recent trauma or injury, recent sick contacts, recent travels, recent ingestion of spoiled food, abdominal pain, nausea, vomiting, or diarrhea. Cardiovascular: HTN, hyperipidemia Past Medical History Chronic back pain Degenerative disc disease Past Surgical History: Other (Ectopic and right big toe surgery), Tubal Ligation Family History: None Smoke: No ALCOHOL: none Drugs: None Lives: with Family Domestic Violence: Neg Review of Systems Constitutional: Yes: Other (Dizziness) Allergies: Coded Allergies: BOUBACAR Inhibitors (Verified Allergy, Severe, 12/13/24) Metronidazole (Verified Allergy, Severe, 12/13/24) Medications Current Medications Medications Dose Ordered Sig/Karthikeyan Route Start Time Stop Time Status Last Admin Dose Admin Nicardipine HCl 250 ml @ 50 mls/hr Q5H IV 12/28/24 15:15 UNV Acetaminophen/ Hydrocodone Bitart 1 tab Q4HP PRN PO 12/28/24 15:15 UNV Ondansetron HCl 4 mg Q4HP PRN IV 12/28/24 15:15 UNV Acetaminophen 650 mg Q6HP PRN PO 12/28/24 15:15 UNV Morphine Sulfate 2 mg Q4HPRN PRN IV 12/28/24 15:15 UNV Nitroglycerin 0.4 mg Q5MINP PRN SL 12/28/24 15:15 UNV Morphine Sulfate 2 mg Q30M PRN IV 12/28/24 15:15 UNV Patient Own Medication 10 mg DAILY PO 12/29/24 10:00 UNV Exam Vital Signs Vital Signs Date Time Temp Pulse Resp B/P (MAP) Pulse Ox O2 Delivery O2 Flow Rate FiO2 12/28/24 15:00 100 189/106 12/28/24 14:18 98.6 20 98 98.6 12/28/24 10:26 Room Air General Appearance: Alert, Oriented X3, Cooperative, No acute distress HEENT: Atraumatic, PERRLA, EOMI, Mucous membr. moist/pink Respiratory: Clear to auscultation, Normal air movement Cardiovascular: Normal S1, Normal S2, No murmurs Abdominal: Normal bowel sounds, Soft Extremities: No clubbing, No cyanosis, No edema, Normal pulses Skin: No significant lesion Neuro: Normal speech, Strength at 5/5 X4 ext, Normal tone, Sensation intact Psych/Mental Status: Mental status NL, Mood NL Labs/Xrays Labs Test 12/28/24 13:53 12/28/24 10:03 Range/Units Troponin I High Sensitivity 3 L </=34 ng/L White Blood Count 4.6 4.4-10.8 10^3/uL Red Blood Count 4.11 4.0-5.20 10^6/uL Hemoglobin 12.3 12.2-16.2 g/dL Hematocrit 36.6 36.0-46.0 % Mean Corpuscular Volume 89.0 80.0-100.0 fL Mean Corpuscular Hemoglobin 29.9 28.0-32.0 pg Mean Corpuscular Hemoglobin Concent 33.6 32.0-36.0 g/dL Red Cell Distribution Width 15.9 H 11.8-14.3 % Platelet Count 363 140-450 10^3/uL Mean Platelet Volume 7.0 6.9-10.8 fL Neutrophils (%) (Auto) 46.7 37.0-80.0 % Lymphocytes (%) (Auto) 42.1 10.0-50.0 % Monocytes (%) (Auto) 8.8 0.0-12.0 % Eosinophils (%) (Auto) 1.4 0.0-7.0 % Basophils (%) (Auto) 1.0 0.0-2.0 % Neutrophils # (Auto) 2.1 1.6-8.6 10 ^3/uL Lymphocytes # (Auto) 1.9 0.4-5.4 10 ^3/uL Monocytes # (Auto) 0.4 0-1.3 10 ^3/uL Eosinophils # (Auto) 0.1 0-0.8 10 ^3/uL Basophils # (Auto) 0 0-0.2 10 ^3/uL Nucleated Red Blood Cells 0.2 % Sodium Level 139 136-145 mmol/L Potassium Level 4.0 3.5-5.1 mmol/L Chloride Level 103 98-107 mmol/L Carbon Dioxide Level 28 20-31 mmol/L Anion Gap 8 5-15 Blood Urea Nitrogen 9 9-23 mg/dL Creatinine 0.92 0.550-1.02 mg/dL Glomerular Filtration Rate Calc 76 >90 mL/min BUN/Creatinine Ratio 9.8 L 10.0-20.0 Serum Glucose 95 74-106 mg/dL Calcium Level 9.8 8.7-10.4 mg/dL CLINICAL HISTORY: dizziness TECHNIQUE: Helical imaging carried out from skull base to vertex without intravenous contrast. This exam was performed according to our departmental dose optimization program. Up-to-date CT equipment and radiation dose reduction techniques are utilized as appropriate. CTDIVol: 53.99 mGy DLP: 863.9 mGy-cm WID: COMPARISON: HEAD WITHOUT CONTRAST on DOS: 01/17/22 FINDINGS: The ventricles and subarachnoid spaces are normal in size and configuration. There is no midline shift or mass effect. The cabral white matter interfaces are maintained. The basal cisterns are patent. There is no evidence of acute intracranial hemorrhage or extra-axial fluid collection. The mastoid air cells and visualized paranasal sinuses are well-aerated. IMPRESSION: No acute intracranial abnormality. XY CHEST PORTABLE, HISTORY: dizziness COMPARISON: None None TECHNICAL DATA: 1 view of the chest was obtained. FINDINGS: Lines and tubes: None Cardiomediastinal silhouette: normal Pulmonary vasculature: normal Lung expansion: normal Lung airspace: normal Lung interstitium: normal Pleura: normal Pneumothorax: no Bones: Unremarkable Other: no IMPRESSION: No acute intrathoracic abnormality. Assessment/Plan Assessment/Plan Assessment Hypertensive urgency Autonomic imbalance Obesity History of hyperlipidemia History of chronic back pain History of degenerative disc disease History of tubal ligation History of ectopic History of right big toe surgery Plan Admit to ICU Nicardipine drip Antihypertensives NS 1 L given in ED EKG Troponin noted negative x2 CT head noted Chest x-ray noted UA Last echo on EF less than 55% Echo ordered Diet Home medications reconciled DVT prophylaxis-not indicated patient ambulating PUD prophylaxis-not indicated no history of GERD or GI bleed Discussed plan of care with patient and nurse Counseled patient on lifestyle modifications, diet, and exercise Educated patient about salt intake Plan discussed with: Patient My Orders Orders - RAGHU FELIPE Procedure Category Date Status Time Nicardipine PHA 12/28/24 Logged 25mg/250ml Bag Kit 15:15 Admit ADMIT 12/28/24 Transmitted 15:10 Allergies KENDALL 12/28/24 In Process 15:10 Code Status CODE 12/28/24 Transmitted 15:10 Hydrocodone-Acet PHA 12/28/24 Logged 5/325mg Tab ([place] 15:15 Ondansetron Hcl PHA 12/28/24 Logged (Zofran) 15:15 Complete Blood Count LAB 12/29/24 Verified 04:00 Comprehensive LAB 12/29/24 Verified Metabolic Panel 04:00 Cardiac DIET 12/28/24 Transmitted Diet-2gna,Lofat,Lochol Dinner Acetaminophen Tablet PHA 12/28/24 Logged (Tylenol Tablet) 15:15 Morphine Sulfate PHA 12/28/24 Logged Injection 15:15 Sequential KENDALL 12/28/24 In Process Compression Device Nitroglycerin PHA 12/28/24 Logged Sublingual (Ntrostat 15:15 Morphine Sulfate PHA 12/28/24 Logged Injection 15:15 Stat Ekg For Chest KENDALL 12/28/24 In Process Pain 15:10 Notify Of Changes KENDALL 12/28/24 In Process From Base 15:10 Exercise Planner For KENDALL 12/28/24 In Process 24 Hours 15:10 Emergency Dysrhythmia KENDALL 12/28/24 In Process Protocol 15:10 Rhythm Strips Once KENDALL 12/28/24 In Process Every Shift 15:10 Oxygen By Nasal RT 12/28/24 Transmitted Cannula 15:10 (Nf) Amlodipine PHA 12/29/24 Transmitted Besylate 10:00 (Nf) Hydralazine Hcl PHA 12/28/24 Transmitted 22:00 Losartan Tablet PHA 12/29/24 Verified (Cozaar Tablet) 10:00 Hydrochlorothiazide PHA 12/29/24 Verified Tablet (Hydrochlorot 10:00 Date of Service: Dec 28, 2024 Billing Provider: THON,SALINA K MEDICAL EDUCATION COORDINATOR Common Visit Codes: [id number] INP/OBS CARE (HIGH) RAGHU FELIPEP Dec 28, 2024 15:28
[2024-12-28] MEDS: NICARDIPINE HCL IN SODIUM CHLO 200 ML IV SCH (16:15)
[2024-12-28 17:15] VITALS: PULSE 96; O2SAT 95
[2024-12-28 19:09] LABS: Urine Bacteria FEW /hpf (None Seen); Urine Blood Negative /uL (Negative); Urine Clarity Clear (Clear); Urine Color Colorless (Yellow); Urine Protein, UAD Negative (Negative); Urine Specific Gravity 1.005 (1.001-1.035); Urine Squamous Epithelial Cell FEW /hpf (<5); Urine Urobilinogen Normal (Negative); Urine WBC 1 /HPF (0-5)
--- NOTE | 2024-12-28 19:16 | ECG ---
[facility] Test Date: 2024-12-28 Test Time: 10:25:16 Pat Name: EDGAR CARO Department: ED Room: [address] [place] [address] Gender: F Acute Care Clinical Nurse Specialist: ute : 1975 Requested By: CINDY CERVANTES Order Number: [id number] Reading MD: Varinder Oropeza Measurements Intervals [place] Rate: 79 P: 47 CO: 173 QRS: -25 QRSD: 93 T: 56 QT: 399 QTc: 458 Interpretive Statements Sinus rhythm LVH by voltage Anterior Q waves, possibly due to LVH Electronically Signed On 12-28-2024 21:19:41 PDT by Varinder Oropeza Please click the below link to view image of tracing.
[2024-12-28 19:17] VITALS: PULSE 88; RESP 17; O2SAT 98
--- NOTE | 2024-12-28 19:17 | ECG ---
[facility] Test Date: 2024-12-28 Test Time: 12:38:10 Pat Name: EDGAR CARO Department: ED Room: [address] [place] [address] Gender: F Licensing Worker: ute : 1975 Requested By: CINDY CERVANTES Order Number: [id number] Reading MD: Varinder Oropeza Measurements Intervals [place] Rate: 82 P: 52 MA: 175 QRS: -20 QRSD: 93 T: 63 QT: 408 QTc: 477 Interpretive Statements Sinus rhythm Probable left atrial enlargement Borderline left axis deviation Probable anteroseptal infarct, old Electronically Signed On 12-28-2024 21:19:53 PDT by Varinder Oropeza Please click the below link to view image of tracing.
[2024-12-28] MEDS ORDERED: hydrALAZINE HCL 20 MG/ML VL IV PRN (21:15)
[2024-12-28] MEDS: hydrALAZINE HCL 25 MG TAB PO SCH (21:16)
[2024-12-28] MEDS ORDERED: hydrALAZINE HCL 25 MG TAB PO SCH (22:00)
[2024-12-29 01:40] VITALS: BP 125/87; PULSE 66; PULSE 80; RESP 13; RESP 18; TEMP 97.9; O2SAT 96
[2024-12-29 05:35] VITALS: PULSE 80; RESP 18; O2SAT 94
[2024-12-29 06:54] LABS: Alanine Aminotransferase 11 U/L (7-40); Anion Gap 9 (5-15); Aspartate Aminotransferase 15 U/L (<34); BUN/Creatinine Ratio 9.3 (10.0-20.0); Basophils # (auto) 0 10 ^3/uL (0-0.2); Basophils % (auto) 0.4 % (0.0-2.0); Calcium 9.2 mg/dL (8.7-10.4); Carbon Dioxide 25 mmol/L (20-31); Chloride 103 mmol/L (98-107); Eosinophils # (auto) 0 10 ^3/uL (0-0.8); Glucose 96 mg/dL (74-106); Hematocrit 36.1 % (36.0-46.0); Hemoglobin 12.2 g/dL (12.2-16.2); Lymphocytes # (auto) 1.7 10 ^3/uL (0.4-5.4); Lymphocytes % (auto) 36.3 % (10.0-50.0); Mean Corpuscular Hemoglobin 29.9 pg (28.0-32.0); Mean Corpuscular Hgb Conc. 33.8 g/dL (32.0-36.0); Mean Corpuscular Volume 88.5 fL (80.0-100.0); Monocytes # (auto) 0.4 10 ^3/uL (0-1.3); Monocytes % (auto) 9.3 % (0.0-12.0); Neutrophils # (auto) 2.5 10 ^3/uL (1.6-8.6); Nucleated Red Blood Cells % 0.2 %; Platelet Count (auto) 348 10^3/uL (140-450); Potassium 3.7 mmol/L (3.5-5.1); Red Blood Cells 4.08 10^6/uL (4.0-5.20); Red Cell Distribution Width 16.2 % (11.8-14.3); Sodium 137 mmol/L (136-145); Total Protein 7.6 g/dL (5.7-8.2); White Blood Cell 4.7 10^3/uL (4.4-10.8)
[2024-12-29 06:55] LABS: Bilirubin, Total 1.1 mg/dL (0.2-1.0)
[2024-12-29 06:59] LABS: Alkaline Phosphatase 42 U/L (46-116); Blood Urea Nitrogen 7 mg/dL (9-23)
[2024-12-29 08:00] VITALS: PULSE 85; RESP 17; O2SAT 99
[2024-12-29] MEDS: amLODIPine BESYLATE 5 MG TAB PO SCH (10:00)
[2024-12-29] MEDS: LOSARTAN POTASSIUM 50 MG TAB PO SCH (10:19)
[2024-12-29] MEDS: hydroCHLOROthiazide 25 MG TAB PO SCH (10:20)
--- NOTE | 2024-12-29 13:56 | DVHPN2 ---
Objective Vitals Vital Signs Date Time Temp Pulse Resp B/P (MAP) Pulse Ox O2 Delivery O2 Flow Rate FiO2 12/29/24 12:00 98.4 82 14 142/95 (111) 96 98.4 12/29/24 08:00 Room Air* 0 21 Medications Current Medications Medications Dose Ordered Sig/Karthikeyan Route Start Time Stop Time Status Last Admin Dose Admin Acetaminophen/ Hydrocodone Bitart 1 tab Q4HP PRN PO 12/28/24 15:15 Ondansetron HCl 4 mg Q4HP PRN IV 12/28/24 15:15 Acetaminophen 650 mg Q6HP PRN PO 12/28/24 15:15 Morphine Sulfate 2 mg Q4HPRN PRN IV 12/28/24 15:15 Nitroglycerin 0.4 mg Q5MINP PRN SL 12/28/24 15:15 Morphine Sulfate 2 mg Q30M PRN IV 12/28/24 15:15 Amlodipine Besylate 10 mg DAILY PO 12/29/24 10:00 Losartan Potassium 100 mg DAILY PO 12/29/24 10:00 12/29/24 10:19 100 MG Hydrochlorothiazide 25 mg DAILY PO 12/29/24 10:00 12/29/24 10:20 25 MG Hydralazine HCl 50 mg TID PO 12/28/24 21:00 12/29/24 06:41 50 MG Hydralazine HCl 10 mg Q6HP PRN IV 12/28/24 21:15 Laboratory Results Laboratory Tests 12/29/24 06:07 Chemistry Test 12/29/24 06:07 Albumin 4.0 g/dL (3.2-4.8) Calcium Level 9.2 mg/dL (8.7-10.4) Total Protein 7.6 g/dL (5.7-8.2) LFT Test 12/29/24 06:07 Alanine Aminotransferase (ALT) 11 U/L (7-40) Alkaline Phosphatase 42 U/L (46-116) L Aspartate Amino Transferase (AST) 15 U/L (<34) Total Bilirubin 1.1 mg/dL (0.2-1.0) H Urinalysis Test 12/28/24 14:15 Urine Color Colorless (Yellow) Urine Clarity Clear (Clear) Urine pH 7.0 (5.0-9.0) Urine Specific [place] 1.005 (1.001-1.035) Urine Protein Negative (Negative) Urine Ketones Negative (Negative) Urine Blood Negative /uL (Negative) Urine Nitrite Negative (Negative) Urine Bilirubin Negative (Negative) Urine Urobilinogen Normal mg/dL (Negative) Urine Leukocyte Esterase Negative /uL (Negative) Urine RBC <1 /hpf (0 - 4) Urine Microscopic WBC 1 /HPF (0-5) Urine Squamous Epithelial Cells Few /hpf (<5) Urine Bacteria Few /hpf (None Seen) H Urine Glucose Normal mg/dL (Normal) ALLEY AVALOS MD Dec 29, 2024 13:56
--- NOTE | 2024-12-29 15:42 | DVHDS2 ---
Discharge Summary Date of Admission Dec 28, 2024 at 15:10 Date of Discharge: Dec 29, 2024 Admitting Diagnosis Hypertensive urgency Autonomic imbalance Obesity History of hyperlipidemia History of chronic back pain History of degenerative disc disease History of tubal ligation History of ectopic History of right big toe surgery Labs/Diagnostic Data: Laboratory Results Test 12/29/24 06:07 12/28/24 14:15 12/28/24 13:53 White Blood Count 4.7 10^3/uL (4.4-10.8) Red Blood Count 4.08 10^6/uL (4.0-5.20) Hemoglobin 12.2 g/dL (12.2-16.2) Hematocrit 36.1 % (36.0-46.0) Mean Corpuscular Volume 88.5 fL (80.0-100.0) Mean Corpuscular Hemoglobin 29.9 pg (28.0-32.0) Mean Corpuscular Hemoglobin Concent 33.8 g/dL (32.0-36.0) Red Cell Distribution Width 16.2 % (11.8-14.3) Platelet Count 348 10^3/uL (140-450) Mean Platelet Volume 7.1 fL (6.9-10.8) Neutrophils (%) (Auto) 53.0 % (37.0-80.0) Lymphocytes (%) (Auto) 36.3 % (10.0-50.0) Monocytes (%) (Auto) 9.3 % (0.0-12.0) Eosinophils (%) (Auto) 1.0 % (0.0-7.0) Basophils (%) (Auto) 0.4 % (0.0-2.0) Neutrophils # (Auto) 2.5 10 ^3/uL (1.6-8.6) Lymphocytes # (Auto) 1.7 10 ^3/uL (0.4-5.4) Monocytes # (Auto) 0.4 10 ^3/uL (0-1.3) Eosinophils # (Auto) 0 10 ^3/uL (0-0.8) Basophils # (Auto) 0 10 ^3/uL (0-0.2) Nucleated Red Blood Cells 0.2 % Sodium Level 137 mmol/L (136-145) Potassium Level 3.7 mmol/L (3.5-5.1) Chloride Level 103 mmol/L (98-107) Carbon Dioxide Level 25 mmol/L (20-31) Anion Gap 9 (5-15) Blood Urea Nitrogen 7 mg/dL (9-23) Creatinine 0.75 mg/dL (0.550-1.02) Glomerular Filtration Rate Calc 98 mL/min (>90) BUN/Creatinine Ratio 9.3 (10.0-20.0) Serum Glucose 96 mg/dL (74-106) Calcium Level 9.2 mg/dL (8.7-10.4) Total Bilirubin 1.1 mg/dL (0.2-1.0) Aspartate Amino Transferase (AST) 15 U/L (<34) Alanine Aminotransferase (ALT) 11 U/L (7-40) Alkaline Phosphatase 42 U/L (46-116) Total Protein 7.6 g/dL (5.7-8.2) Albumin 4.0 g/dL (3.2-4.8) Urine Color Colorless (Yellow) Urine Clarity Clear (Clear) Urine pH 7.0 (5.0-9.0) Urine Specific [place] 1.005 (1.001-1.035) Urine Protein Negative (Negative) Urine Ketones Negative (Negative) Urine Blood Negative /uL (Negative) Urine Nitrite Negative (Negative) Urine Bilirubin Negative (Negative) Urine Urobilinogen Normal mg/dL (Negative) Urine Leukocyte Esterase Negative /uL (Negative) Urine RBC <1 /hpf (0 - 4) Urine Microscopic WBC 1 /HPF (0-5) Urine Squamous Epithelial Cells Few /hpf (<5) Urine Bacteria Few /hpf (None Seen) Urine Glucose Normal mg/dL (Normal) Troponin I High Sensitivity 3 ng/L (</=34) Other Laboratory Tests 12/29/24 06:07 Brief Hx & Hospital Course: This is a 49 years old female with past medical history hypertension, hyperlipidemia, chronic back pain, degenerative disc disease, ectopic , and big toe surgery came to emergency department because of elevation of blood pressure. 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 The patient was eating some lunch with chicken and waffle and did not realize it was very salty. On top of it she forgets to take her morning medication in shortly after work she started feeling dizzy. She came to ER because of dizziness. Her blood pressure in the ER showed sbp 170-200 and dbp 100-120. The patient was admitted. The patient was given hydralazine IV p.r.n. and restart her home medication. The patient was supposed to admitted to ICU however after getting her medications she improved. Her blood pressure when I see her is in between 120 to 140 systolic and 80 to 90 diastolic so I am going to discharge him home. Advised her to follow up with primary care physician 1-2 weeks. Advised her to avoid salty food. Recommend low-salt low-cholesterol diet. Advised her to check her blood pressure daily. Activity as tolerated. Physical exam: HEENT: Normocephalic atraumatic pupils equal react to light and accommodation. Extraocular muscles intact, conjunctiva pink, oropharynx moist, no thrush, no exudate. Lymphatic: No lymphadenopathy Cardiovascular exam: S1, S2 was heard. No murmurs, rubs, gallops Lung: Clear on auscultation bilaterally, no wheeze, rale, rhonchi. GI: Abdominal soft, nondistended, nontenderness, positive bowel sounds. Extremity: No crepitus, cyanosis, edema. Pedal pulses present bilateral. Full range of motion. Skin: Normal turgor, no rash. Psych: Alert, oriented x3. Neurology: No focal deficits, cranial nerve II to XII grossly intact. This medical document was created using an electronic medical record system with [employer] direct computerized dictation system. Although this document has been carefully reviewed, there may still be some phonetic and typographical errors. These areas are purely typographical due to imperfections of the software programs, and do not reflect any compromise in the patient's medical care. Condition at Discharge: Stable Final Diagnosis/Problems List Hypertensive urgency Autonomic imbalance Obesity History of hyperlipidemia History of chronic back pain History of degenerative disc disease History of tubal ligation History of ectopic History of right big toe surgery Discharge Disposition: Home Discharge Statement: "Patient was advised to return to the ER or call 911 if any headaches, dizziness, shortness of breath, chest pain, abdominal pain, bleeding, fevers, or worsening of medical condition. Patient was counseled about treatment plan, medications, possible side effects, patientverbalized understanding. All questions were answered to the best of my ability. This discharge took greater then 30 minutes in planning, reviewing documentation, counseling the patient, and discussing with other team members." ASSESSMENT ASSESSMENT Assessment Date of Service: Dec 29, 2024 Billing Provider: ALLEY AVALOS MD Common Visit Codes: 66037-WPN/OBS DISCH DAY >30min ALLEY AVALOS MD Dec 29, 2024 15:41
[2024-12-29] MEDS ORDERED: HYDR-4798 PO (15:54)
[2024-12-29] MEDS ORDERED: LOSA50TA30 PO (15:54)
[2024-12-29 16:19] VITALS: BP 126/81; PULSE 66; RESP 13; TEMP 97.9; O2SAT 96
--- NOTE | 2024-12-29 19:11 | DVHSR ---
APPROVED REPORT EXAM: Two-dimensional and M-mode echocardiogram with Doppler and color Doppler. Blood Pressure: 139/90 mmHg INDICATION Dizziness and Vertigo RISK FACTORS Height: 5' 7", Weight: 195 DIMENSIONS LVDd4.1 (3.8-5.7cm)LA (2D)3.8 (1.9-4.0cm)Aortic Root3.3 (2.0-3.7cm) LVDs2.8 (2.5-4.0cm)LA (MM) (1.9-4.0cm)Aortic Cusp Exc1.8 (1.5-2.0cm) EF (%) 55.0 (55-70%)Rt. Atrium3.3 (1.9-4.0cm)Asc. Aorta cm IVSd1.4 (0.7-1.1cm)RV (D) (1.8-2.4cm) PWd1.2 (0.7-1.1cm) Mitral Valve MitralMitral Stenosis E wave0.70m/sMV Mean GR.mmHg A wave0.60m/sMV Peak GR.mmHg E/A ratio1.22D MVAcm2 Aortic Valve Aortic ValveAortic Stenosis V11.10m/Chon Mean GR.4mmHg V21.30m/Chon Peak GR.7mmHg LVOT Diameter2.3 (1.8-2.4cm)Doppler AVA3.51cm2 Pulmonic Valve V20.70m/s Tricuspid Valve TR Velocity2.80m/s [id number] Conclusion MILD LVH AND MILD LV DIASTOLIC DYSFUNCTION LV EF IS 65% AND IS NORMAL GROSSLY NORMAL VALVES NO EFFUSION NORMAL RV FUNCTION
--- NOTE | 2025-01-01 14:16 | ECG ---
[facility] Test Date: 2024-12-28 Test Time: 09:28:01 Pat Name: EDGAR CARO Department: ED Room: [address] [place] [address] Gender: F Manager Utilization Review: ute : 1975 Requested By: CINDY CERVANTES Order Number: [id number] Reading MD: Varinder Oropeza Measurements Intervals [place] Rate: 81 P: 39 VT: 177 QRS: -21 QRSD: 91 T: 55 QT: 386 QTc: 448 Interpretive Statements Sinus rhythm Probable left atrial enlargement Left ventricular hypertrophy Anterior Q waves, possibly due to LVH Electronically Signed On 01-01-2025 22:33:17 PDT by Varinder Oropeza Please click the below link to view image of tracing.
== END 2024-12-29 16:59 | disposition home or self-care (01) | DRG 74 ==
LOC: EDBD 09:24 → ER 09:24 → EDUNIT# 09:24 → OVERFLOW 15:10
DX: G90.89 Other disorders of autonomic nervous system (principal); I16.1 Hypertensive emergency; E66.9 Obesity, unspecified; Z68.30 Body mass index [BMI] 30.0-30.9, adult; I10 Essential (primary) hypertension; E78.5 Hyperlipidemia, unspecified; G89.29 Other chronic pain; Z98.51 Tubal ligation status; Z87.59 Personal history of other complications of pregnancy, childbirth and the puerperium; Z88.3 Allergy status to other anti-infective agents
CPT/HCPCS: 36415; 70450; 71045; 80048; 80053; 81001; 84484; 85025; 93005; 93306; 96361; 96374; 96375; 99291; G0378